=== PATIENT | female | born 1995 | race African-American/Black ===

== ENCOUNTER 2019-08-18 14:13 | Emergency (ER) | payer BC ==
[~2019-08-18] VITALS: Ht 165.1 cm; Wt 72.6 kg
[2019-08-18 14:26] VITALS: BP 156/75
== END 2019-08-18 15:41 | disposition home or self-care (01) ==
LOC: ER 14:16
DX: R50.9 Fever, unspecified (principal); R05 Cough; R09.81 Nasal congestion; Z91.010 Allergy to peanuts; Z60.2 Problems related to living alone